=== PATIENT | male | born 1960 | race Asian ===

== ENCOUNTER 2018-09-20 08:10 | Observation (INO) | payer OTHER ==
[2018-09-22 07:47] LABS: ABS Basophils 0 10^3/ul (0-0.2); ABS Eosinophils 0.1 10^3/ul (0-0.6); ABS Lymphocytes 0.9 10^3/ul (1.0-4.8); ABS Monocytes 0.4 10^3/ul (0-0.8); ABS Neutrophils 1.2 10^3/ul (1.5-7.7); ABS Nucleated RBC 0 10^3/ul; Eosinophil % 3.8 %; Hematocrit 38 % (42-52); Hemoglobin 12.8 g/dl (14.0-18.0); Lymphocyte % 35.3 %; Mean Corpuscular HGB Conc 34 g/dl (31-36); Mean Corpuscular Hemoglobin 30 pg (27-31); Mean Corpuscular Volume 90 fL (80-94); Mean Platelet Volume 7.2 fL (7.4-10.4); Nucleated Red Blood Cells % 0; Platelet Count 218 10^3/ul (150-450); Red Blood Count 4.24 10^6/ul (4.00-5.40); Red Cell Distribution Width 14 % (10.5-15); White Blood Count 2.7 10^3/ul (3.5-10.8)
[2018-09-22] MEDS ORDERED: Dexamethasone IV* 4 MG/ML 5 ML VIAL (20 MG) ONE (08:00)
[2018-09-22] MEDS ORDERED: Palonosetron* 0.25 MG in PREMIX* 0 ML IVPB ONE (08:00)
[2018-09-22] MEDS ORDERED: Famotidine IV* 10 MG/ML 2 ML (20 mg) IV SLOW PU ONE (08:00)
[2018-09-22] MEDS ORDERED: diPHENhydraMINE IV* 50 MG/ML 1 ml VIAL (BENADRYL) SLOW PUSH ONE (08:00)
[2018-09-22 08:09] LABS: Albumin 3.6 g/dL (3.2-5.2); Albumin/Globulin Ratio 1.2 (1-3); BUN/Creatinine Ratio 29.7 (8-20); Calcium 9.1 mg/dL (8.6-10.3); EGFR Non-African American 128.5 (>60); Total Bilirubin 0.4 mg/dL (0.2-1.0); Total Protein 6.6 g/dL (6.4-8.9)
[2018-09-22] MEDS ORDERED: Hyoscyamine TAB* 0.125 MG PRN (08:10)
[2018-09-22] MEDS ORDERED: Atropine SYRINGE* 0.1 MG/ML 10 ML SYRINGE (1 MG) IV PRN (08:11)
[2018-09-22] MEDS ORDERED: LORazepam INJ* 2 MG/ML 1 ML VIAL IV PUSH PRN (08:12)
[2018-09-22] MEDS ORDERED: diPHENhydraMINE IV* 50 MG/ML 1 ml VIAL (BENADRYL) SLOW PUSH PRN (08:13)
[2018-09-22] MEDS ORDERED: methylPREDNISolone 125 MG* 2 ML VIAL IV PRN (08:13)
[2018-09-22] MEDS ORDERED: D5W IVPB ONE ×5 (09:00→17:00)
[2018-09-22] MEDS ORDERED: OXALIPLATIN FOR DESENSIT B IVPB ONE (09:00)
[2018-09-22] MEDS ORDERED: EPINEPHRINE 1 MG/ML 1 ML VIAL IM PRN (09:17)
[2018-09-22] MEDS ORDERED: OXALIPLATIN FOR DESENSIT A IVPB ONE (10:00)
[2018-09-22] MEDS ORDERED: OXALIPLATIN IVPB ONE ×2 (11:00→12:00)
[2018-09-22] MEDS ORDERED: Leucovorin Calcium* 35 MG in D5W 250 ML BAG* 250 ML IVPB ONE (16:30)
[2018-09-22] MEDS ORDERED: IRINOTECAN IVPB ONE (17:00)
[2018-09-22] MEDS ORDERED: FLUOROURACIL IVPB ONE (18:30)
[2018-09-22] MEDS ORDERED: NS 0.9% IVPB ONE (18:30)
[2018-09-22 19:22] VITALS: BP 130/74
--- NOTE | 2018-09-23 09:20 | DS ---
- Discharge Summary Admission Date: 09/22/18 Discharge Date: 09/22/18 Discharge Diagnosis: 1. Pancreatic Cancer: recurrent progressive on FOLFIRINOX, C2 today Discharge Medications: resume home meds Medication Instructions Recorded Confirmed Type glyBURIDE [Glyburide] 2.5 mg PO BID 05/19/14 09/06/18 History metFORMIN* [Glucophage 500 MG TAB 500 mg PO BID 05/19/14 09/06/18 History *] Hyoscyamine TAB* [Anaspaz 0.125 MG 0.125 mg PO Q6H PRN #40 tab 09/06/18 Rx TAB*] Hyoscyamine TAB* [Anaspaz 0.125 MG 0.125 mg PO QID PRN tab 09/06/18 Rx TAB*] Ondansetron TAB* [Zofran 4 MG Tab*] 4 mg PO Q6H PRN #80 tab 09/06/18 Rx Prochlorperazine TAB* [Compazine 10 mg PO Q6H PRN #120 tab 09/06/18 Rx Tab*] Hospital Course: Please see admission note for full H&P. Mr. Gallardo was admitted for his second prolonged Oxalipatin infusion, challenge due to prior reaction. He tolerated his infusion without difficulty and will be discharged home with continuous infusion per regimen. He will f/u with oncology [facility]. Plan of care reviewed with pt. and who denied questions.
== END 2018-09-22 19:45 | disposition home or self-care (01) ==
LOC: MED 09-22 07:01 → INTOOBSV 09-22 07:01
PROVIDERS: ADMIT Internal Medicine Hematology & Oncology; ATTEND Internal Medicine Hematology & Oncology
DX: C25.9 Malignant neoplasm of pancreas, unspecified (principal); E11.9 Type 2 diabetes mellitus without complications; K21.9 Gastro-esophageal reflux disease without esophagitis; Z86.711 Personal history of pulmonary embolism; Z92.21 Personal history of antineoplastic chemotherapy
CPT/HCPCS: 36415; 80053; 85025; 86301; 96365; 96375; 96376; 99219; G0378; J0461; J0640; J1100; J1200; J1642; J2469; J2930; J9190; J9206; J9263

== ENCOUNTER 2019-07-24 18:54 | Emergency (ER) | payer OTHER ==
[2019-07-24 19:16] VITALS: BP 135/60
--- NOTE | 2019-07-24 19:52 | UC ---
Skin Complaint HPI - HPI Summary HPI Summary: 59-year-old male with history of diabetes presents with an plaints of left foot redness, swelling, and tenderness. States 4 days ago he discovered a blister between his fourth and fifth toes that ruptured. The next day he noted some a small amount of redness at the base of the fourth and fifth toes on the dorsal aspect of his foot. This morning when he awoke he noted that the redness had spread to his entire dorsal foot and that the foot was swollen and tender. Denies fever, chills, calf pain or swelling, chest pain, shortness of breath. - History of Current Complaint Chief Complaint: UCLowerExtremity Time Seen by Provider: 07/24/19 19:45 Stated Complaint: FOOT PAIN Hx Obtained From: Patient Pain Intensity: 0 - Allergy/Home Medications Allergies/Adverse Reactions: Allergies Allergy/AdvReac Type Severity Reaction Status Date / Time No Known Allergies Allergy Verified 07/24/19 19:15 PMH/Surg Hx/FS Hx/Imm Hx Endocrine History: Diabetes - Surgical History Surgical History: Yes Surgery Procedure, Year, and Place: 2007 -[facility] SURG - / OF PANCREAS REMOVED ,. 2013 -LUNG BX. 2013 POWER PORT - PLACED AT [facility] [place] - Family History Known Family History: Positive: Diabetes - Social History Occupation: Employed Full-time Lives: With Family Alcohol Use: None Substance Use Type: None Smoking Status (MU): Never Smoked Tobacco - Immunization History Most Recent Influenza Vaccination: fall 2017 Most Recent Pneumonia Vaccination: none Review of Systems All Other Systems Reviewed And Are Negative: Yes Constitutional: Negative: Fever, Chills Skin: Positive: Other - See HPI Respiratory: Positive: Negative Cardiovascular: Positive: Negative Gastrointestinal: Positive: Negative Genitourinary: Positive: Negative Musculoskeletal: Negative: Calf Tenderness Neurological: Positive: Negative Is Patient Immunocompromised?: No Physical Exam - Summary Physical Exam Summary: GENERAL APPEARANCE: Well developed, well nourished, alert and cooperative, and appears to be in no acute distress. CARDIAC: Normal S1 and S2. No S3, S4 or murmurs. Rhythm is regular. There is no peripheral edema, cyanosis or pallor. Extremities are warm and well perfused. Capillary refill is less than 2 seconds. Peripheral pulses intact. LUNGS: Clear to auscultation without rales, rhonchi, wheezing or diminished breath sounds. ABDOMEN: Positive bowel sounds. Soft, nondistended, nontender. No guarding or rebound. No masses or hepatosplenomegally. MUSKULOSKELETAL: ROM intact to all extremities. No joint erythema or tenderness. Normal muscular development. Normal gait. Bilateral calves supple and non-tender. EXTREMITIES: Open blister noted between the 4th and 5th toes of the left foot with erythema, moderate edema, and increased warmth noted to the entire dorsal foot. SKIN: Skin normal color, texture and turgor. Triage Information Reviewed: Yes Vital Signs: Initial Vital Signs Temp 98.9 F 07/24/19 19:08 Pulse 101 07/24/19 19:08 Resp 16 07/24/19 19:08 BP 135/60 07/24/19 19:08 Pulse Ox 96 07/24/19 19:08 Vital Signs Reviewed: Yes Course/Dx - Course Course Of Treatment: 59-year-old male with history of diabetes presents with an plaints of left foot redness, swelling, and tenderness. States 4 days ago he discovered a blister between his fourth and fifth toes that ruptured. The next day he noted some a small amount of redness at the base of the fourth and fifth toes on the dorsal aspect of his foot. This morning when he awoke he noted that the redness had spread to his entire dorsal foot and that the foot was swollen and tender. Denies fever, chills, calf pain or swelling, chest pain, shortness of breath. Afebrile. Vital signs stable. Patient had an open blister noted between the 4th and 5th toes of the left foot with erythema, moderate edema, and increased warmth noted to the entire dorsal foot consistent with cellulits. Will treat with cephalexin 500 mg TID 7 days. Patient was given the first dose in the clinic and provided with a dose for in the morning. He is to follow-up with his primary care provider in 3 days for recheck of symptoms. Anticipatory guidance and warning symptoms requiring immediate evaluation the emergency room were reviewed with the patient. Verbalizes understanding and agrees with plan of care. - Differential Diagnoses - Skin Complaint Differential Diagnoses: Cellulitis, Contact Dermatitis, MRSA, Systemic Illness, Tinea - Diagnoses Provider Diagnosis: Cellulitis of left foot Discharge ED - Sign-Out/Discharge Documenting (check all that apply): Patient Departure All imaging exams completed and their final reports reviewed: No Studies - Discharge Plan Condition: Stable Disposition: HOME Prescriptions: cephALEXin [Keflex] 500 mg PO TID #19 capsule Patient Education Materials: Cellulitis (ED) Referrals: Nickolas Napoles MD [Primary Care Provider] - 3 Days (For recheck of symptoms.) Additional Instructions: Your symptoms are consistent with an infection of the skin called cellulitis. We will start to on an antibiotic to treat the infection. Take cephalexin 500 mg 1 capsule 3 times a day for 7 days. We gave you the first dose in the clinic. Take acetaminophen (Tylenol) or ibuprofen (Advil, Motrin) according directions as needed for any pain. Follow-up with your primary care provider in 3 days for recheck of symptoms. Seek immediate medical attention in the emergency room if you develop a fever greater than 100.5 F, have redness that rapidly spreads, increased swelling of the foot or leg, severe pain that is not managed with pain medication, or any worsening of symptoms. - Billing Disposition and Condition Condition: STABLE Disposition: Home - Attestation Statements Provider Attestation: I was available for consult. This patient was seen by the TYRESE. The patient was not presented to, seen by, or examined by me. -Shaina
[2019-07-24] MEDS ORDERED: Cephalexin CAP* 500 MG PO ONE (19:56)
== END 2019-07-24 20:05 | disposition home or self-care (01) ==
LOC: UCEAST 18:54
DX: L03.116 Cellulitis of left lower limb (principal); E11.9 Type 2 diabetes mellitus without complications
CPT/HCPCS: 99212; A9270-GY; G0463